=== PATIENT | male | born 1960 | race Caucasian/White ===

== ENCOUNTER 2024-10-02 13:31 | Emergency (ER) | payer OTHER, SELFPAY ==
[2024-10-02 13:48] VITALS: BP 163/85
[2024-10-02 15:46] VITALS: BMI 27.3
[2024-10-02] MEDS: FLEXERIL 10 MG PO (16:05)
[2024-10-02] MEDS: TORADOL 15 MG IM (16:05)
--- NOTE | 2024-10-02 16:06 | ED.GENMED ---
History of Present Illness
General
Chief Complaint: Musculo-Skeletal Complaint
Source: patient
Exam Limitations: none
Time Seen by Provider: 10/02/24 14:21
Nursing documentation reviewed up to this point in time: agreed with
History of Present Illness
History of Present Illness:
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 Has had ongoing discomfort
made worse than some positions and with some movements. Seems to improve with light activity and stretching. Within a few days ago with improvement. Denies shortness of breath nausea vomiting diaphoresis.. Seem to occur the day after lifting
Review of Systems
Review of Systems
Allergies reviewed?: Yes
All Other Systems: ROS reviewed and negative except as documented in HPI and ROS
Phy Exam
Physical Exam
Physical Exam:
GENERAL: Alert , in no apparent distress
EYE: pupils equal and reactive
NECK: Supple, no significant adenopathy.
ENT: o/p clr, mmm.
CARDIAC: Regular rate and rhythm .
LUNGS: Clear breath sounds bilaterally, no acute respiratory distress, no wheezes/rales/rhonchi
ABDOMEN: Soft, without focal tenderness, no r/g, no cvat
NEUROLOGICAL: Alert and oriented, no focal neuro deficits
SKIN: Warm and dry, skin intact.
MUSCULOSKELETAL: No edema, well perfused.
PSYCH: Normal and appropriate interaction.
Course
Orders/Labs/Results
Orders:
Orders
10/02/24
Electrocardiogram (*1) Stat
Comment: ALREADY DONE
10/02/24 15:17
Cyclobenzaprine HCl [Flexeril] 10 mg PO NOW STA
Ketorolac [Toradol] 15 mg IV NOW STA
Chest [CR Chest - 2 Views ] Urgent
Comment:
Reason For Exam: left chestpain
10/02/24 16:03
Complete Blood Count/With Diff Urgent
Troponin I Urgent
10/02/24 16:04
Ketorolac [Toradol] 15 mg IM NOW STA
10/02/24 17:05
Basic Metabolic Panel Urgent
Lipase Urgent
Abnormal Lab Results
10/02/24 10/02/24
16:03 17:05
WBC 3.7 L 10^3/uL
(4.8-10.8)
RBC 3.80 L 10^6/uL
(4.70-6.10)
Hgb 10.3 L g/dL
(13.0-18.0)
Hct 32.1 L %
(39.0-52.0)
MCHC 32.1 L g/dL
(33.0-37.0)
RDW 15.5 H %
(11.5-14.5)
MPV 10.7 H fL
(7.4-10.4)
Absolute Lymphs (auto) 0.7 L 10^3/uL
(1.2-3.4)
Lymphocytes % 17.8 L %
(20.5-51.1)
Monocytes % 17.2 H %
(1.7-9.3)
Glucose 145 H mg/dl
(70-99)
Lipase < 10 L U/L
(23-300)
10/02/24 16:03
10/02/24 17:05
Vital Signs
Initial and Last Documented VS:
Initial Vital Signs
Temp Pulse Resp BP Pulse Ox
98.4 F 64 16 163/ 98
10/02/24 13:48 10/02/24 13:48 10/02/24 13:48 10/02/24 13:48 10/02/24 13:48
Last Documented Vital Signs
Temp Pulse Resp BP Pulse Ox
98.4 F 64 16 163/85 98
10/02/24 13:48 10/02/24 13:48 10/02/24 13:48 10/02/24 13:48 10/02/24 13:48
MDM/Problems Addressed
MDM/Problems Addressed:
64-year-old male presenting to the emergency department today with concerns of left lateral chest wall discomfort. Seem to occur 1 day after lifting a heavy box. Going for the past few days. Took baclofen and Motrin with some improvement. On
arrival here blood pressure elevated otherwise vitals are normal. Patient with normal heart rate and pulse ox. No ongoing chemoradiation. X-ray here without emergent findings EKG nonemergent.
*Critical Care Note
Total Time (30-74mins, 75-104mins- exclusive of procedures): Not Applicable
ED Attending Note
-
Portions of this chart may have been created with voice recognition software.� Occasional wrong word or��sound alike� substitutions may have occurred due to the inherent limitations of voice recognition software.
Discharge Plan
Departure
Patient Disposition: Home (Routine Discharge)
Date of Disposition: 10/02/24
Time of Disposition: 18:20
Patient with high blood pressure during this ER visit?: No
Condition: Good
Covid-19: Not Applicable
Discharge Problem:
Chest wall pain
Instructions: Muscle and Bone Pain (DC)
Prescriptions:
New
meloxicam 15 mg tablet
15 mg PO DAILY Qty: 10 0RF
cyclobenzaprine 10 mg tablet
10 mg PO HS PRN (Reason: muscle spasm) Qty: 7 0RF
No Action
atorvastatin 40 mg Tablet
40 mg PO DAILY
diltiazem HCl 180 mg Capsule,Extended Release 24 Hr
180 mg PO DAILY
cetirizine [Zyrtec] 5 mg Tablet
5 mg PO DAILY
omeprazole [Prilosec] 40 mg Capsule,Delayed Release(Dr/Ec)
40 mg PO DAILY
lisinopril 5 mg Tablet
5 mg PO DAILY
hydrochlorothiazide 25 mg Tablet
25 mg PO DAILY
Referrals:
Williams Frank DO [Family Provider] -
Activity Restrictions/Additional Instructions:
You came to the emergency department today with concerns of left-sided chest wall discomfort. You had a reassuring assessment had a normal cardiac workup normal troponin normal chest x-ray and EKG. Please follow closely as an outpatient for
further treatment and management. Return for any worsening, new or concerning symptoms.
Interventions
Interventions:
*Risk Screen - Suicide Last Done: 10/02/24 13:48
*General Assessment Last Done: 10/02/24 15:46
*Neglect/Abuse Screening Last Done: 10/02/24 13:48
*ED- Fall Risk Assessment Last Done: 10/02/24 15:46
*ED COVID-19 Vaccine History Last Done: 10/02/24 15:46
ED-Musculoskeletal Assessment Last Done: 10/02/24 15:46
Discharge Date and Time
Print Language: MOZAMBICAN
[2024-10-02 16:27] LABS: % Basophils 0.3 % (0-2); % Eosinophils 1.6 % (0-6); % Immature Granulocytes 0.3 % (0-0.5); % Lymphocytes 17.8 % (20.5-51.1); % Monocytes 17.2 % (1.7-9.3); % Neutrophils 62.8 % (42.2-75.2); Absolute Eosinophils 0.1 10^3/uL (0-0.7); Absolute Lymphocytes 0.7 10^3/uL (1.2-3.4); Absolute Monocytes 0.6 10^3/uL (0.1-0.6); Absolute Neutrophils 2.3 10^3/uL (1.4-6.5); Hematocrit 32.1 % (39.0-52.0); Hemoglobin 10.3 g/dL (13.0-18.0); Mean Corp Hgb Conc. 32.1 g/dL (33.0-37.0); Mean Corpuscular Hgb 27.1 pg (27.0-31.0); Mean Corpuscular Volume 84.5 fL (80.0-94.0); Mean Platelet Volume 10.7 fL (7.4-10.4); Nucleated Red Blood Cells % 0 % (-); Platelet Count 140 10^3/uL (130-400); Red Cell Dist. Width 15.5 % (11.5-14.5); White Blood Cell Count 3.7 10^3/uL (4.8-10.8)
[2024-10-02 16:45] LABS: Troponin I < 0.012 ng/ml
[2024-10-02 17:32] LABS: Blood Urea Nitrogen 15 mg/dl (9-20); Calcium 9.3 mg/dl (8.4-10.2); Carbon Dioxide 26 mmol/L (22-30); Chloride 102 mmol/L (98-107); Estimated Creatinine Clearance 81 ml/min; Glucose 145 mg/dl (70-99); Lipase < 10 U/L (23-300); Sodium 136 mmol/L (135-145); eGFR > 60.00
== END 2024-10-02 18:23 | disposition home or self-care (01) ==
LOC: EMR 13:31
PROVIDERS: Physician Assistant; EMERGENCY PHYSICIAN Emergency Medicine; FAMILY PHYSICIAN Internal Medicine
DX: R07.89 Other chest pain (principal); E78.5 Hyperlipidemia, unspecified; I10 Essential (primary) hypertension
CPT/HCPCS: 99285; 96372; 71046; 80048; 83690; 84484; 85025; 93005

== ENCOUNTER → 2024-10-28 14:14 | Outpatient (REF) | payer OTHER, SELFPAY | LOC: RAD 14:14 | PROVIDERS: ATTENDING PHYSICIAN Internal Medicine | DX: K43.2 Incisional hernia without obstruction or gangrene (principal) | CPT/HCPCS: 74177; Q9967 ==